=== PATIENT | female | born 1940 | race Two or more races ===

== ENCOUNTER → 2018-12-13 | Outpatient (CLI) | payer MEDICARE, OTHER ==
--- NOTE | 2018-12-13 10:29 | CONS ---
Assessment/Plan Assessment/Plan Hospital Course (Demo Recall) 77-year-old female with 2 weeks of acute right knee pain. The knee is tender to palpation directly over the medial aspect. She had no prior knee pain. She is having difficulty bearing weight. X-rays are negative for any degenerative changes. Given the patient's severe osteoporosis and MRI would be beneficial in evaluating for an insufficiency fracture. If there is an insufficiency fracture she will need to remain nonweightbearing for several weeks. If the MRI is negative for insufficiency fracture she may be candidate for steroid injection at the next visit. Plan: MRI right knee Limit weightbearing right lower extremity with walker Continue Voltaren gel. Prescribed refill Ice Follow-up after MRI Consultation Date/Type/Reason Admit Date/Time Date of Consultation: Dec 13, 2018 Reason for Consultation Right knee pain Date/Time of Note DATE: 12/13/18 TIME: 10:15 Hx of Present Illness This is a 77 yo female with a chief complaint of right knee pain. The pain began approximately 2 weeks ago. Patient states she does get cellulitis lower extremity secondary to venous insufficiency. She recently had cellulitis of bilateral lower extremities from mid tibia to the ankle secondary to numerous mosquito bites. She was placed on clindamycin about a month ago. States her cellulitis has resolved. Denies any fevers or chills. Her knee pain acutely began 2 weeks ago without injury. States she is never had any previous knee pain. The patients pain is in the medial aspect of the right knee. Pain is not radiating to the lower leg. The pain is rated as a 5/10. Patient denies complaints of numbness or tingling. The pain is exacerbated by climbing stairs and ambulation as well as sitting. Pain is not relieved by NSAID's. Patient has been taking Voltaren gel on a p.r.n. basis which helps temporarily. Duration: 2 weeks Injury: No Walking tolerance: 0 blocks Limp: yes Support: No Swelling: Yes Crepitation: No Instability: No Stairs: Does not use stairs Physical Therapy: No Injections: No NSAIDs: Voltaren gel Prior surgery: No Back pain: No Hip pain: No Risk of AVN : Yes, on chronic prednisone secondary to severe asthma/COPD Patient denies fever, chills, shortness of breath, chest pain, nausea/vomiting, constipation, diarrhea, numbness, and tingling. Past Medical History Hypertension peripheral vascular disease Asthma Eczema Venous insufficiency Past Surgical History Stent Family History Significant Family History: no pertinent family hx Social History Alcohol Use: none Smoking Status: Never smoker Drug Use: none Exam/Review of Systems Exam Vitals Weight: 150 pounds Height: 5 foot Temperature: 90.4 Heart Rate: 79 Blood Pressure: 167/67 Respiratory Rate: 14 Exam General: Alert, oriented x3. No Acute Distress. Heart: Regular rate and rhythm. Lungs: No respiratory distress. No accessory muscle use. Musculoskeletal: Right Knee This is a well developed female who is alert, oriented times three and in no apparent distress. Skin is intact over the right knee as well as the lower extremity with no abrasions, lacerations, or ulcerations. Observation of the patient's gait reveals an antalgic gait with No thrust. Frontal plane alignment is slight valgus. There is pain on palpation of medial joint line. The patient does not demonstrate grinding anteriorly with ROM. Range of motion: 0 extension to approximately 130 degrees of flexion. Collateral ligament testing reveals no instability with varus or valgus stress at 0 and 30 degrees of flexion. There is mild pain with valgus stress. Negative Tiarra's and negative posterior drawer. Neurovascularly intact with 5/5 EHL/tibialis anterior/gastroc. Sensation intact to light touch in a sural, saphenous, deep peroneal, superficial peroneal, medial and lateral plantar nerve distribution. Palpable, symmetric dorsalis pedis and posterior tibial pulses in both lower extremities. Hip examination normal. Imaging Imaging The patient received a standard set of films today that were personally reviewed. Imaging included a standing bilateral knee AP, PA flexion, merchant views and a dedicated lateral of the affected knee: There is slight valgus alignment of the knee. There is significant loss of joint space in any compartment(s). There is no osteophyte formation. There is no subchondral sclerosis. There are no subchondral cysts. Diffuse demineralization of the bone. No fracture. Atherosclerosis of arterial vessels. SOPHY SALEH MD Dec 13, 2018 10:26
--- NOTE | 2018-12-14 09:56 | RADRPT ---
PROCEDURE: Bilateral knee series CLINICAL INDICATION: Pain TECHNIQUE: AP weightbearing, PA axial weightbearing, lateral weightbearing and sunrise views of the right and left knees were obtained COMPARISON: None FINDINGS: No evidence of acute fractures or dislocations. 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 In the distal right femoral metaphy sis is an elongated approximately 2.5 by 1.1 cm inhomogeneous area of sclerosis consistent with an en chondroma or bone infarct. No other focal bony lesions demonstrated. Bilateral small suprapatellar kn ee joint effusions. Atherosclerotic vascular disease. Soft tissues otherwise unremarkable. IMPRESSION: 1. 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 2. 2.5 x 1.1 cm enchondroma versus bone infarct distal right femoral metaphysis. 3. Bilateral small suprapatellar knee joint effusions. RPTAT:AAJJ Physician Boy Date Time Electronically viewed and signed by Physician Boy on 12/14/2018 09:56 /
== END | disposition home or self-care (01) ==
LOC: HKI 09:29
PROVIDERS: ATTEND Orthopaedic Surgery Adult Reconstructive Orthopaedic Surgery
DX: L03.115 Cellulitis of right lower limb (principal); I10 Essential (primary) hypertension; I73.9 Peripheral vascular disease, unspecified; J45.909 Unspecified asthma, uncomplicated; L30.9 Dermatitis, unspecified; I87.2 Venous insufficiency (chronic) (peripheral)
CPT/HCPCS: 73564; G0463

== ENCOUNTER → 2019-01-05 | Outpatient (CLI) | payer MEDICARE, OTHER ==
--- NOTE | 2019-01-05 19:42 | CONS ---
Consult Date/Type/Reason Admit Date/Time Initial Consult Date Date/Time of Note DATE: 01/05/19 TIME: 19:35 Subjective 78-year-old female follows up today little less than 1 month for right knee pain. At last appointment she had acute onset of right knee pain over the medial aspect of her knee. At that time given her clinical presentation and examination there was concern for an insufficiency fracture especially given her osteoporosis. At last appointment she was instructed to limit weightbearing and to use walker. Since the last visit she has had significant improvement. She now is no longer using a gait aid and is weightbearing as tolerated with no pain with short distances. When she walks for an extended period of time or stands for long time she does get pain. She does have pain at the end of the day. Currently she has 0/10 pain. Objective Vitals Weight: 150 pounds Height: 5 foot Heart Rate: 67 Blood Pressure: 168/71 Exam General: Alert, oriented x3. No Acute Distress. Heart: Regular rate and rhythm. Lungs: No respiratory distress. No accessory muscle use. Musculoskeletal: Right Knee This is a well developed female who is alert, oriented times three and in no apparent distress. Skin is intact over the right knee as well as the lower extremity with no abrasions, lacerations, or ulcerations. Observation of the patient's gait reveals an antal gic gait with No thrust. Frontal plane alignment is slight valgus. There is no pain on palpation of medial joint line. The patient does not demonstrate grinding anteriorly with ROM. Range of motion: 0 extension to approximately 130 degrees of flexion. Collateral ligament testing reveals no instability with varus or valgus stress at 0 and 30 degrees of flexion. There is no pain with valgus stress. Negative Tiarra's and negative posterior drawer. Neurovascularly intact with 5/5 EHL/tibialis anterior/gastroc. Sensation intact to light touch in a sural, saphenous, deep peroneal, superficial peroneal, medial and lateral plantar nerve distribution. Palpable, symmetric dorsalis pedis and posterior tibial pulses in both lower extremities. Hip examination normal. Results/Medications Imaging The patient received a standard set of films today that were personally reviewed. Imaging included a standing bilateral knee AP, PA flexion, merchant views and a dedicated lateral of the affected knee: There is slight valgus alignment of the knee. There is significant loss of joint space in any compartment(s). There is no osteophyte formation. There is no subchondral sclerosis. There are no subchondral cysts. Diffuse demineralization of the bone. No fracture. Atherosclerosis of arterial vessels. MRI of the right knee from outside facility dated 12/27/2018 was personally reviewed. There is an insufficiency fracture of the medial tibial plateau with intense marrow edema and subchondral fracture sclerosis. Underlying degenerative changes worse in the medial compartment. There is a joint effusion and popliteal cyst. There is tear of the medial meniscus including the root ligament. There is a grade 2 proximal MCL injury. Mucoid degeneration of the ACL. There is a distal femoral enchondroma. Assessment/Plan Hospital Course (Demo Recall) This is an 78-year-old female with a healing insufficiency fracture of her right medial tibial plateau. Clinically she is much improved since last visit. She has no pain on examination. She is able to tolerate walking short distances without any gait aid and without any pain. At this time am still recommending that she limits her activity and uses pain as her guide. I emphasized the patient that this is still healing and too much activity weightbearing can cause further damage and not allow the insufficiency fracture to heal. She is currently on Prolia for osteoporosis. However she states she is not on any calcium supplementation. I encouraged her to add calcium to her current vitamin D supplement. Like her to no further formal appointment as needed. She can follow-up SOPHY CONTRERAS MD January 05, 2019 19:42
--- NOTE | 2019-01-06 17:23 | RADRPT ---
PROCEDURE: XR Knees. CLINICAL INDICATION: Bilateral knee pain. TECHNIQUE: Total of eight views. Weightbearing frontal, oblique, and lateral views of the both kne es. Patellar views of both knees. COMPARISON: No prior study is available for comparison. FINDINGS: There is no fracture or dislocation. Vascular calcifications are present consistent with atherosclerosis. There is bilateral medial joint compartment narrowing, subchondral sclerosis, and osteophytes with le ft worse than right. There is no lytic or blastic lesion. There is no radiopaque foreign body. IMPRESSION: 1. Moderate degenerative changes predominately involving the medial joint compartments with left wor se than right. 2. Otherwise unremarkable bilateral knee radiographs. RPTAT: QQ .Russ De Santiago MD, MD Date Time Electronically viewed and signed by .Russ De Santiago MD, on 01/06/2019 17:23 .R/
== END | disposition home or self-care (01) ==
LOC: HKI 14:50
PROVIDERS: ATTEND Orthopaedic Surgery Adult Reconstructive Orthopaedic Surgery
DX: M25.561 Pain in right knee (principal)
CPT/HCPCS: 73564; G0463